=== PATIENT | male | born 1950 | race Caucasian/White ===

== ENCOUNTER 2018-06-07 07:50 | Emergency (ER) | payer BC, MEDICARE | END 2018-06-07 08:35 | disposition home or self-care (01) | LOC: SCSER 07:50 | DX: B34.9 Viral infection, unspecified (principal); I48.91 Unspecified atrial fibrillation; M10.9 Gout, unspecified; Z79.899 Other long term (current) drug therapy | CPT/HCPCS: 87804; 99283 ==

== ENCOUNTER 2018-08-18 08:24 | Emergency (ER) | payer BC, MEDICARE | END 2018-08-18 08:45 | disposition home or self-care (01) | LOC: SCSER 08:24 | DX: R09.81 Nasal congestion (principal); I48.91 Unspecified atrial fibrillation; M10.9 Gout, unspecified; Z79.899 Other long term (current) drug therapy | CPT/HCPCS: 99283 ==